=== PATIENT | male | born 1980 | race Caucasian/White ===

== ENCOUNTER 2017-03-09 09:51 | Emergency (ER) | payer OTHER ==
[~2017-03-09] VITALS: Ht 182.8 cm; Wt 78.9 kg
[~2017-03-09 09:51] MED LIST: NEXIUM20 MG PO
[2017-03-09] MEDS ORDERED: PREDNISONE10 MG PO (10:26)
== END 2017-03-09 10:40 | disposition home or self-care (01) ==
LOC: ED 09:51
DX: L25.5 Unspecified contact dermatitis due to plants, except food (principal); H57.8 Other specified disorders of eye and adnexa; H57.11 Ocular pain, right eye; F17.200 Nicotine dependence, unspecified, uncomplicated; Z79.899 Other long term (current) drug therapy

== ENCOUNTER 2017-08-29 15:14 | Emergency (ER) | payer OTHER ==
[~2017-08-29 15:14] MED LIST changes: +PREDNISONE10 MG PO
[2017-08-29] MEDS ORDERED: Percocet 325 MG1 TAB PO (15:22)
[2017-08-29] MEDS ORDERED: Motrin,Rufen800 MG PO (17:12)
[2017-08-29] MEDS ORDERED: CEPHALEXIN500 M1 PO (17:18)
== END 2017-08-29 17:17 | disposition home or self-care (01) ==
LOC: ED 15:14
DX: S62.351A Nondisplaced fracture of shaft of second metacarpal bone, left hand, initial encounter for closed fracture (principal); F17.200 Nicotine dependence, unspecified, uncomplicated; Z79.899 Other long term (current) drug therapy; W23.0XXA Caught, crushed, jammed, or pinched between moving objects, initial encounter; Y93.89 Activity, other specified; Y92.89 Other specified places as the place of occurrence of the external cause; Y99.9 Unspecified external cause status

== ENCOUNTER → 2017-09-16 | Outpatient (CLI) | payer OTHER ==
[~2017-09-16] MED LIST changes: +CEPHALEXIN500 M1 PO; +Motrin,Rufen800 MG PO; +Percocet 325 MG1 TAB PO
== END | disposition home or self-care (01) ==
LOC: ORTHO 00:24 → LAB 00:24 → ORTHO 18:27
DX: S62.351D Nondisplaced fracture of shaft of second metacarpal bone, left hand, subsequent encounter for fracture with routine healing (principal); X58.XXXD Exposure to other specified factors, subsequent encounter; E55.9 Vitamin D deficiency, unspecified

== ENCOUNTER → 2017-10-12 | Outpatient (CLI) | payer OTHER | END | disposition home or self-care (01) | LOC: ORTHO 02:13 | DX: S62.351D Nondisplaced fracture of shaft of second metacarpal bone, left hand, subsequent encounter for fracture with routine healing (principal); X58.XXXD Exposure to other specified factors, subsequent encounter ==

== ENCOUNTER → 2017-11-09 | Outpatient (CLI) | payer OTHER | END | disposition home or self-care (01) | LOC: ORTHO 01:53 | DX: S62.351D Nondisplaced fracture of shaft of second metacarpal bone, left hand, subsequent encounter for fracture with routine healing (principal); X58.XXXD Exposure to other specified factors, subsequent encounter ==

== ENCOUNTER 2020-03-24 11:25 | Emergency (ER) | payer OTHER ==
[~2020-03-24] VITALS: Ht 180.3 cm; Wt 86.2 kg
[2020-03-24 12:20] LABS: BASO # 0.1 10*3/uL (0.0-0.1); BASO % 0.7 % (0.0-1.0); EOS # 0.1 10*3/uL (0.0-0.4); EOS % 0.6 % (1.0-4.0); HEMATOCRIT 47.8 % (42.0-52.0); LYMPH # 1.3 10*3/uL (1.3-4.4); LYMPH % 12.7 % (27.0-41.0); MEAN CELL VOLUME 96.4 fl (80.0-94.0); MEAN CORPUSCULAR HGB 30.8 pg (27.0-31.0); MEAN PLATELET VOLUME 11.2 fl (9.6-12.3); MONO # 0.5 10*3/uL (0.1-1.0); MONO % 4.8 % (3.0-9.0); NEUT # 8.4 10*3/uL (2.3-7.9); NEUT % 80.8 % (47.0-73.0); PLATELET COUNT AUTOMATED 213 10*3/uL (130-400); RED BLOOD COUNT 4.96 10*6/uL (4.50-5.90); RED CELL DISTRI WIDTH 11.6 % (0-14.5); WHITE BLOOD COUNT 10.4 10*3/uL (4.8-10.8)
[2020-03-24 12:36] LABS: BILIRUBIN NEGATIVE; BLOOD 3+ (NEGATIVE); CLARITY SL CLOUDY (CLEAR); COLOR YELLOW (YELLOW); GLUCOSE NEGATIVE; KETONE NEGATIVE
[2020-03-24 12:37] LABS: BACTERIA 1+; LEUKO ESTERASE NEGATIVE (NEGATIVE); NITRITE NEGATIVE (NEGATIVE); RBC 41-50 rbc/hpf (0-2); UROBILINOGEN < 0.2 E.U./dl (0.2-1.0)
[2020-03-24 12:37] LABS: ALBUMIN 3.9 gm/dl (3.1-4.5); ALKALINE PHOSPHATASE 81 U/L (45-117); BUN 9 mg/dl (7-24); CHLORIDE 112 mmol/L (98-107); CREATININE 1.15 mg/dL (0.70-1.30); POTASSIUM 4.1 mmol/L (3.5-5.1); SGOT/AST 11 IU/L (3-35); SGPT/ALT 23 U/L (12-78); SODIUM 143 mmol/L (136-145)
[2020-03-24] MEDS ORDERED: ZOFRAN4 MG PO (16:47)
[2020-03-24] MEDS ORDERED: FLOMAX0.4 MG PO (16:47)
[2020-03-24] MEDS ORDERED: SEPTDS PO (16:47)
== END 2020-03-24 17:11 | disposition home or self-care (01) ==
LOC: ED 11:25
PROVIDERS: Nurse Practitioner Family
DX: N20.1 Calculus of ureter (principal); N23 Unspecified renal colic; Z79.899 Other long term (current) drug therapy